=== PATIENT | female | born 1975 | race African-American/Black ===

== ENCOUNTER 2018-10-26 12:04 | Emergency (ER) | payer MEDICAID ==
[~2018-10-26] VITALS: Ht 172.7 cm; Wt 163.6 kg
[~2018-10-26 12:04] MED LIST: ABX; OXYCODONE
[2018-10-26] MEDS ORDERED: HYDR25TA PO (12:11)
[2018-10-26 13:03] VITALS: BP 160/98
== END 2018-10-26 13:06 | disposition home or self-care (01) ==
LOC: EMS 12:07
DX: G51.0 Bell's palsy (principal); K02.9 Dental caries, unspecified; H92.02 Otalgia, left ear; F17.210 Nicotine dependence, cigarettes, uncomplicated; Z88.5 Allergy status to narcotic agent
CPT/HCPCS: 99406

== ENCOUNTER 2024-12-31 19:15 | Emergency (ER) | payer MEDICAID ==
[~2024-12-31] VITALS: Ht 172.7 cm; Wt 168.2 kg
[~2024-12-31 19:15] MED LIST changes: -ABX; +HYDR25TA2 PO
[2024-12-31 21:33] VITALS: BP 183/99; PULSE 89; RESP 18; TEMP 97.9; O2SAT 100
[2025-01-01] MEDS ORDERED: TRAM50TA5 PO (00:31)
[2025-01-01] MEDS ORDERED: ACET-66 PO (00:31)
[2025-01-01] MEDS ORDERED: MINE3.5O29 OS (00:31)
== END 2025-01-01 01:01 | disposition home or self-care (01) ==
LOC: EMS 19:15
DX: M79.674 Pain in right toe(s) (principal); R22.0 Localized swelling, mass and lump, head; F12.90 Cannabis use, unspecified, uncomplicated; Z88.1 Allergy status to other antibiotic agents; Z79.899 Other long term (current) drug therapy
CPT/HCPCS: 84550; 99284